=== PATIENT | female | born 1940 | race Caucasian/White ===

== ENCOUNTER 2018-07-26 10:18 | Emergency (ER) | payer OTHER ==
[~2018-07-26] VITALS: Ht 157.5 cm; Wt 64.0 kg
[~2018-07-26 10:18] MED LIST: CARBAMAZEPINE200 MG PO; CORGARD20 MG PO; COZAAR50 MG PO; HYDROCHLOROTHIA25 MG PO; LEVOTHYROXIN PO; NEXIUM40 MG PO; NOR5 PO; TRAMADOL50 M1 PO; ZOF4 PO
[2018-07-26 10:22] VITALS: Ht 157.5 cm; Wt 64.0 kg
[2018-07-26 11:00] LABS: BASOPHIL % 0.7 % (0-2); PLATELET COUNT 212 x10^3mcL (130-400); RED CELL DISTRIBUTION WIDTH 13.8 % (11.5-14.5)
[2018-07-26 11:07] LABS: CALCIUM 8.7 mg/dL (8.5-10.1); CARBON DIOXIDE 31.3 mmol/L (21-32); CHLORIDE SERUM 102 mmol/L (98-107); CREATININE SERUM 0.7 mg/dL (0.6-1.0); GLUCOSE SERUM 108 mg/dL (74-106); POTASSIUM SERUM 3.8 mmol/L (3.5-5.1); SODIUM SERUM 139 mmol/L (136-145)
[2018-07-26 11:12] LABS: ALBUMIN 3.6 g/dL (3.4-5.0); ALKALINE PHOSPHATASE 44 U/L (46-116); ALT/SGPT 12 U/L (14-59); AST/SGOT 18 U/L (15-37); BILIRUBIN TOTAL 0.4 mg/dL (0.20-1.00); TOTAL PROTEIN, SERUM 7.1 g/dL (6.4-8.2)
[2018-07-26 11:34] LABS: microscopic required? NO
[2018-07-26 12:13] VITALS: BP 142/70
[2018-07-26 12:14] LABS: urine erythrocyte NEGATIVE (NEGATIVE)
== END 2018-07-26 12:35 | disposition home or self-care (01) ==
LOC: ED 10:18
PROVIDERS: Emergency Medicine
DX: K62.5 Hemorrhage of anus and rectum (principal); I10 Essential (primary) hypertension; E78.00 Pure hypercholesterolemia, unspecified; Z90.710 Acquired absence of both cervix and uterus; Z98.890 Other specified postprocedural states
CPT/HCPCS: 36415